=== PATIENT | male | born 1945 | race Caucasian/White ===

== ENCOUNTER 2021-08-07 01:22 | Day surgery (SDC) | payer MEDICARE, SELFPAY ==
[2021-07-29 11:15] VITALS: BMI 28.5
--- NOTE | 2021-08-06 15:13 | PM.HPGS ---
History of Present Illness History of Present Illness Consent: Risks, benefits, and alternatives have been discussed and questions answered. Patient agrees to proceed with procedure. Chief complaint: positive cologuard Narrative: Jl [place]ricks is a 76 year old male who was referred for colon cancer screening. 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 Heart disease Skin cancer Surgical History Surgical History History of coronary artery stent placement Family History Family History Mother Lung cancer Father Diabetes mellitus Parkinson disease Daughter Heart disease Depression Hypertension Social History Social History Smoking packs per day: 1 Smoking cigarettes per day: 20.0 Years smoked: 10 Smoking pack-years: 10.00 Smoking status: Former smoker Tobacco type: cigarettes Second hand tobacco smoke exposure: No Alcohol intake: current Alcohol use details: Rarely Substance use: never Substance use type: does not use Living arrangements: with family Spiritual care concerns: No Meds Home Medications and Allergies Home Medications Medication Instructions Recorded Confirmed Type atorvastatin 80 mg tablet 80 mg PO DAILY #90 tablet 02/06/21 08/07/21 Rx clopidogrel 75 mg tablet 75 mg PO DAILY #90 tablet 02/06/21 08/07/21 Rx dapagliflozin 10 mg tablet 10 mg PO DAILY #90 tablet 05/16/21 08/07/21 Rx dulaglutide 4.5 mg/0.5 mL 4.5 mg SUBCUT WEEKLY #0.5 ml 05/16/21 08/07/21 Rx subcutaneous pen injector flash glucose sensor #1 ea 05/30/21 08/07/21 Rx flash glucose sensor 05/31/21 08/07/21 History metoprolol succinate [Toprol XL] 75 mg PO DAILY 07/29/21 08/07/21 History amlodipine 10 mg tablet 10 mg PO DAILY #90 tablet 08/06/21 08/07/21 Rx metformin 1,000 mg tablet 1,000 mg PO BID 90 Days #180 tablet 08/06/21 08/07/21 Rx quinapril 40 mg tablet 40 mg PO DAILY #90 tablet 08/06/21 08/07/21 Rx Allergies Allergy/AdvReac Type Severity Reaction Status Date / Time No Known Allergies Allergy Verified 08/07/21 09:27 Exam Resp: Auscultation: clear to auscultation bilaterally Cardio: Rate: regular rate Rhythm: regular rhythm GI: GI Palp: Yes Soft to palpation and No Tenderness to palpation present (GI) Assessment and Plan Assessment and plan (1) Encounter for screening colonoscopy: Code(s): Z12.11 - Encounter for screening for malignant neoplasm of colon Status: Acute Assessment and Plan: Colonoscopy with possible biopsy or polypectomy or cautery or injection of substances.
[2021-08-07 09:15] VITALS: BP 121/60; PULSE 95; RESP 18; TEMP 36.7; O2SAT 99; BMI 28.9
[2021-08-07 09:28] LABS: Glucose Point of Care 221 mg/dl (65-105)
[2021-08-07] MEDS: LACTATED RINGERS 1,000 ML 150 ML IV CONT (09:42)
--- NOTE | 2021-08-07 09:56 | WPDANESEPPF ---
Anes - Initial Pre Proc Eval Procedure: Operation Date: 08/07/21 10:30 Proposed Procedures p Colonoscopy - Juan Daniel Grace MD Date/Time: 08/07/21 09:56 Surgeon: Juan Daniel Grace MD Pre Op Diagnosis: positive cologuard Patient Data Age: 76 Gender: M Height: 1.73 m Weight: 86.3 kg Last Vital Signs Temp 98.1 F 08/07/21 09:15 Pulse 95 08/07/21 09:15 Resp 18 08/07/21 09:15 BP 121/60 08/07/21 09:15 Pulse Ox 99 08/07/21 09:15 Allergies Allergy/AdvReac Type Severity Reaction Status Date / Time No Known Allergies Allergy Verified 08/07/21 09:27 Home Medications Medication Instructions Recorded Confirmed Type atorvastatin 80 mg tablet 80 mg PO DAILY #90 tablet 02/06/21 08/07/21 Rx clopidogrel 75 mg tablet 75 mg PO DAILY #90 tablet 02/06/21 08/07/21 Rx dapagliflozin 10 mg tablet 10 mg PO DAILY #90 tablet 05/16/21 08/07/21 Rx dulaglutide 4.5 mg/0.5 mL 4.5 mg SUBCUT WEEKLY #0.5 ml 05/16/21 08/07/21 Rx subcutaneous pen injector flash glucose sensor #1 ea 05/30/21 08/07/21 Rx flash glucose sensor 05/31/21 08/07/21 History metoprolol succinate [Toprol XL] 75 mg PO DAILY 07/29/21 08/07/21 History amlodipine 10 mg tablet 10 mg PO DAILY #90 tablet 08/06/21 08/07/21 Rx metformin 1,000 mg tablet 1,000 mg PO BID 90 Days #180 tablet 08/06/21 08/07/21 Rx quinapril 40 mg tablet 40 mg PO DAILY #90 tablet 08/06/21 08/07/21 Rx Laboratory Tests 08/07/21 09:24 POC Capillary Glucose 221 mg/dl H mg/dl (65-105) Patient hx anesthesia problems: none Family hx anesthesia problems: none Results Review: All pre-operative results and documents have been reviewed as part of the pre-operative evaluation. 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 Heart disease Skin cancer Surgical History Surgical History History of coronary artery stent placement Family History Family History Mother Lung cancer Father Diabetes mellitus Parkinson disease Daughter Heart disease Depression Hypertension Social History Social History Smoking packs per day: 1 Smoking cigarettes per day: 20.0 Years smoked: 10 Smoking pack-years: 10.00 Smoking status: Former smoker Tobacco type: cigarettes Second hand tobacco smoke exposure: No Alcohol intake: current Alcohol use details: Rarely Substance use: never Substance use type: does not use Living arrangements: with family Spiritual care concerns: No Anes - Eval Final PreProcedure Day of Procedure 08/07/21 09:56 Patient weight: overweight Heart: regular rate and rhythm Lungs: clear to auscultation Airway: Mallampati scale class II Neurological: alert and oriented Last oral intake: >/= 8 hours ASA classification: III Emergent: no Anesthetic plan: proceed Anesthesia type and monitoring: general GIVS and standard monitoring Results Review: All pre-operative results and documents have been reviewed as part of the pre-operative evaluation. Informed Consent: The patient's anesthetic plan and its attendant risks and benefits were discussed with the patient/family/POA. Questions were solicited and answers provided to the satisfaction of the patient/family/POA.
[2021-08-07 10:45] VITALS: BP 103/61; PULSE 83; RESP 26; O2SAT 98
[2021-08-07 10:54] VITALS: BP 126/97; PULSE 79; RESP 23; O2SAT 98
[2021-08-07 11:04] VITALS: BP 119/73; PULSE 71; RESP 20; O2SAT 100
== END 2021-08-07 11:05 | disposition home or self-care (01) ==
PROVIDERS: PCP Internal Medicine; Visit Provider Internal Medicine Gastroenterology
PROC: 0DJD8ZZ Inspection of Lower Intestinal Tract, Via Natural or Artificial Opening Endoscopic (ICD-10-PCS; CPT 45378; principal; 2021-08-07 10:30)
DX: Z12.11 Encounter for screening for malignant neoplasm of colon (principal); D12.3 Benign neoplasm of transverse colon; D12.4 Benign neoplasm of descending colon; D12.0 Benign neoplasm of cecum; K63.5 Polyp of colon; R19.5 Other fecal abnormalities; I51.9 Heart disease, unspecified; Z95.5 Presence of coronary angioplasty implant and graft; Z87.891 Personal history of nicotine dependence; Z79.02 Long term (current) use of antithrombotics/antiplatelets; Z79.84 Long term (current) use of oral hypoglycemic drugs; Z79.899 Other long term (current) drug therapy
CPT/HCPCS: 45380; 45385; 82948; 88305; J2704; J7120

== ENCOUNTER 2021-09-24 09:22 | Outpatient (RCR) | payer MEDICARE, SELFPAY ==
[2021-09-24 09:22] VITALS: BMI 32.5
[2021-09-24 09:31] VITALS: BMI 32.5
== END 2021-11-08 14:44 | disposition home or self-care (01) ==
LOC: ANHDMC 09:22
PROVIDERS: PCP Internal Medicine; Visit Provider Internal Medicine
DX: E11.65 Type 2 diabetes mellitus with hyperglycemia (principal); Z71.3 Dietary counseling and surveillance
CPT/HCPCS: 97802

== ENCOUNTER 2023-06-29 10:10 | Outpatient (CLI) | payer MEDICARE, SELFPAY ==
--- NOTE | ~2023-06-29 | US_ITS ---
EXAMINATION: US carotid duplex BI DATE: 06/29/2023 11:15 INDICATION: Left carotid bruit TECHNIQUE: Grayscale, color Doppler, and pulsed Doppler images of the cervical carotid arteries were obtained. The degree of vessel stenosis is placed in one of the following categories: normal, <50%, 5 0-69%, >=70% but less than near-occlusion, near-occlusion, or total occlusion. Note that percent sten osis relative to normal distal artery lumen diameter is indirectly measured from velocity measurement s as described by Carlos, et al. Radiology 2003; 229:340-346. COMPARISON: None. FINDINGS: RIGHT: The right common carotid artery (CCA) peak systolic velocity (PSV) is 79 cm/s. The right internal car otid artery (ICA) PSV is 57 cm/s. The right ICA end-diastolic velocity (EDV) is 19 cm/s. The right IC A/CCA PSV ratio is 0.7. Grayscale and color Doppler images yield an estimate of <50% diameter reducti on from plaque in the ICA. The external carotid artery (ECA) PSV is 87 cm/s. There is antegrade flow in the right vertebral artery. LEFT: The left CCA PSV is 90 cm/s. The left ICA PSV is 58 cm/s. The left ICA EDV is 21 cm/s. The left ICA/C CA PSV ratio is 0.6. Grayscale and color Doppler images yield an estimate of <50% diameter reduction from plaque in the ICA. The ECA PSV is 95 cm/s. There is antegrade flow in the left vertebral artery. IMPRESSION: 1. <50% stenosis in the right internal carotid artery. 2. <50% stenosis in the left internal carotid artery. Reviewed, dictated and finalized at location A.
== END 2023-06-29 10:11 | disposition home or self-care (01) ==
LOC: ANHIMG 10:12
PROVIDERS: PCP Nurse Practitioner; Visit Provider Internal Medicine Cardiovascular Disease
DX: I65.23 Occlusion and stenosis of bilateral carotid arteries (principal); R09.89 Other specified symptoms and signs involving the circulatory and respiratory systems
CPT/HCPCS: 93880

== ENCOUNTER 2025-06-21 02:41 | Day surgery (SDC) | payer MEDICARE, SELFPAY ==
--- OUTSIDE RECORDS SUMMARY | 2010-06-27 12:00 | XMS_ITS | Continuity of Care Document ---
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 Name Role Phone Rodriguez OD, Rodríguez Unavailable Unavailable Procedures Procedure Date Eye Exam & Treatment Refraction Vision Svcs Frames Purchases SV Poly Carb Sph Wal[place] To +/- 4 009 Polycarb Lens Per Lens Eye Exam & Treatment Refraction Eye Exam & Treatment Refraction Eye Exam & Treatment Refraction Advance Directives Directive Yes / No Effective Date File Name No Information Encounters Encounter Description Practice Location Reason(s) For Visit Diagnoses Date Provider Providers Copied on Encounter [facility], [id number] [place] [address] [address], [place], [place], [id number], [place] tel:[phone] [facility] No Information Oct-2 8-201 0 Rodriguez OD Rodríguez. [address] , [address], [place], [address], [place]. tel:[phone] Referring Provider: Davy Vera MD, [address] [facility], [place], [address]. tel:[phone] [facility], [address], [place], [place], [id number], tel:[phone] [facility] No Information Oct-0 9-200 9 [facility] . [address], [address], [place], [place], [id number], [place]. tel:[phone] Referring Provider: Rodríguez Rodriguez OD A, [address], [place], [address]. tel:[phone] g Provider: Jessa Siegel, [address] [facility], [place], [address]. tel:[phone] [facility], [address], [place], [place], [id number], [place] tel:[phone] [facility] No Information Oct-0 1200 9 Rodriguez OD Rodríguez. [address] [facility] , [address], [place], [address], [place]. tel:[phone] Referring Provider: Davy Vera MD, [address] [place], [address]. tel:[phone] [facility], [address], [place], [place], [id number], [place] tel:[phone] [facility] No Information 8 Delmi Lopez. [address] [facility] , [address], [place], [address], [place]. tel:[phone] [facility], [address], [place], [place], [id number], [place] tel:[phone] [facility] No Information 7 Delmi Lopez. [address] [facility] , [address], [place], [address], [place]. tel:[phone] Family History Family Member Type Diagnosis Age At Onset No Information Payers Payer name Insurance type Covered green party ID Authorstevea isha(s) [employer] Plan CI [id number] Social History Type Description Quantity Date Captured Comments Sex Male Smoking Status No Information Chief Complaint And Reason For Visit No Information Reason For Referral Reason For Referral No Information History Of Present Illness Encounter Date Complaint History Of Prese nt Illness No Information Functional Status Date Functional Assessmen t No Information Instructions Date Instruction Additional Infor mation No Information Assessments Type Assessment Date No Information Patient Care Teams Name Effective Dates (start - stop) Status Members No Information
[2025-06-12 15:22] VITALS: BMI 31.4
--- NOTE | 2025-06-12 16:07 | PC.NURSE ---
Spoke with PATIENT regarding medication PLAVIX. PATIENT verbalizes understanding that the last dose is to be taken on 06/13/2025 and the Endoscopist will instruct them when to restart after the procedure.
--- OUTSIDE RECORDS SUMMARY | 2025-06-21 02:44 | XMS_ITS | Encounter Summary ---
Author Organization [facility] Address [address] [place] [address] Care Team Providers Care Chief Technical Officer Name Role Phone Cody Light NP Primary Care Provider Encounter Details Date Type Department Care Team (Late st Contact Info) Description 06/06/2025 Telephone [facility] Medical Group Cardiology [address] [place] [address] Ayush Hurley MD [address] [facility] [address] [facility] [address] [place] [address] Social History Tobacco Use Types Packs/Day Years Used Date Smoking Tobacco: Former Cigarettes 1 - 08/31/1977 Smokeless Tobacco: Never Alcohol Use Standard Drinks/Week Comments No 0 (1 standard drink = 0.6 oz pur e alcohol) Sex and Gender Information Value Date Recorded Sex Assigned at Not on file 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 * Telephone Encounter - Zoraida Wisdom - 06/06/2025 12:19 PM CDT Ayla called in and states that the form she sent over yesterday, is incorrect. She is asking if they can hold Plavix for 7 days and she correct it on her form or if she needs to send over a new formto be completed. Requesting a call back. Please advise, thank you. Contact : [phone] documented in this encounter Plan of Treatment Not on file documented as of this encounter Visit Diagnoses Not on filedocumented in this encounter Care Teams Chief Technical Officer Relationship Specialty Start Date End Date Cody Light, SUSAN [address] [place] [address] PCP - General Nurse Practitioner 12/16/23 documented as of this encounter
--- OUTSIDE RECORDS SUMMARY | 2025-06-21 02:44 | XMS_ITS | Clinical Summary ---
Author Organization [facility] Address [address] [place] [address] Care Team Providers Care Civil Engineering Teacher Name Role Phone Cody Light NP Primary Care Provider Allergies No known active allergies Medications amLODIPine (NORVASC) 10 mg tablet take 1 tablet by oral route every day 30 3 09/04/19 16 Active nitroglycerin (NITROSTAT) 0.[address] 1 tablet (0.4 mg total) under the tongue every 5 (five) minutes as needed for chest pain 25 tablet 3 04/23/20 20 Active atorvastatin (LIPITOR) 80 mg tablet Take 1 tablet (80 mg total) by mouth daily 90 tablet 3 05/25/20 20 Active metFORMIN (GLUCOPHAGE) 1,000 mg tablet Take 1 tablet (1,000 mg total) by mouth 2 (two) times a day 11/17/19 21 Active Farxiga 5 mg tablet Take 1 tablet (5 mg total) by mouth daily 04/13/20 21 Active coenzyme Q10 200 mg capsule Take 2 capsules (400 mg total) by mouth daily Active omega 1-ici-vqr-fis h oil 60-90-500 mg capsule,delay ed release(DR/EC ) Take by mouth Active UNABLE TO FIND Prevagen Active TOUJEO MAX 300 unit/mL (3 mL) pen for injection INJECT 30 UNITS SUBCUTANEOUSLY DAILY 03/12/20 22 Active Ozempic 1 mg/dose (4 mg/3 mL) pen injector injection INJECT 1 MG UNDER SKIN ONCE WEEKLY 11/14/19 23 Active lisinopriL (PRINIVIL,ZES TRIL) 40 mg tablet Take 1 tablet (40 mg total) by mouth daily 03/26/20 23 Active metoprolol XL (TOPROL-XL) 50 mg extended release tablet TAKE 1.5 TABLETS BY MOUTH DAILY 135 tablet 2 03/29/20 25 Active clopidogreL (PLAVIX) 75 mg tablet TAKE 1 TABLET BY MOUTH EVERY DAY 90 tablet 06/05/20 25 Active clopidogreL (PLAVIX) 75 mg tablet TAKE 1 TABLET BY MOUTH EVERY DAY 90 tablet 03/08/20 25 2024 Discontinued Active Problems Problem Noted Date Diagnosed Date Obesity (BMI 30.0-34.9) 12/18/2023 Left carotid bruit 06/12/2023 Hyperlipidemia associated with type 2 diabetes m ellitus 06/17/2022 Coronary artery disease of n ative artery of [place] heart with stable angina pectoris ([facility]) 04/23/2017 Assessment & Plan (04/29/2021 10:24 AM CDT): No symptoms of myocardial ischemia. Continue clopidogrel. He has nitroglycerin available and we reviewed today how he should take it if needed.( He has never needed it.) Assessment & Plan (04/23/2020 10:10 AM CDT): No symptoms of myocardial ischemia. Continue Plavix and metoprolol. Assessment & Plan (04/21/2019 10:53 AM CDT): Asymptomatic and with normal myocardial perfusion study. Continue clopidogrel. Assessment & Plan (04/22/2018 2:17 PM CDT): No symptoms of myocardial ischemia. Continue anti-platelet therapy. Pharmacologic stress test with next visit. Assessment & Plan (04/23/2017 12:44 PM CDT): Asymptomatic. Continue anti-platelet therapy. Hypertension associated with diabetes 04/23/2017 Assessment & Plan (04/29/2021 10:24 AM CDT): Blood pressure is adequately controlled on current regimen. No change was made. Assessment & Plan (04/23/2020 10:10 AM CDT): Blood pressure is adequately controlled on current regimen. No change was made. Assessment & Plan (04/21/2019 10:53 AM CDT): Blood pressure is adequately controlled on current regimen. No change was made. Assessment & Plan (04/22/2018 2:17 PM CDT): Blood pressure is adequately controlled on current regimen. No change was made. Assessment & Plan (04/23/2017 12:44 PM CDT): Blood pressure is adequately controlled on current regimen. No change was made. Encounters Date Type Department Care Team Description 06/06/2025 Telephone [facility] Medical Group Cardiology [address] [place] [address] Ayush Hurley MD from Last 3 Months Surgical History Surgery Date Site/Laterality Comments CATARACT EXTRACTION 2019 both eyes Medical History Medical History Date Comments Hypertension Hypertension Hyperlipidemia Diabetes mellitus Arthritis Cataract Start of cataracts Heart disease Family History Medical History Relation Name Comments Coronary artery disease Father Keenan [place] Cor onary Artery Bypass Graft; Diabetes Father Keenan [place] Hearing loss Father Keenan [place] Heart attack Father Keenan [place] Heart disease Father Keenan [place] Stroke Father Keenan [place] Cancer Mother Lakshmi [place] Relation Name Status Comments Brother Alive Father Keenan [place] Mother Lakshmi [place] Sister Alive Social History Tobacco Use Types Packs/Day Years Used Date Smoking Tobacco: Former Cigarettes 1 - 08/31/1977 Smokeless Tobacco: Never Tobacco Cessation:Counseling Given: Not Answered Alcohol Use Standard Drinks/Week Comments No 0 (1 standard drink = 0.6 oz pur e alcohol) Sex and Gender Information Value Date Recorded Sex Assigned at Not on file 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 Gender Identity Male 04/18/2020 6:08 PM CDT Sexual Orientation Straight 04/18/2020 6: 08 PM CDT Obstetrics History Last Filed Vital Signs Vital Sign Reading Time Taken Comments Blood Pressure 136/68 02/24/2025 8:06 AM CDT Pulse 65 02/24/2025 8:06 AM CDT Temperature - - Respiratory Rate - - Oxygen Saturation 95% 02/24/2025 8:06 AM CDT Inhaled Oxygen Concentration - - Weight 90.7 kg (200 lb) 02/24/2025 8:06 AM CDT Height 170.2 cm (5' 7) 02/24/2025 8:06 AM CDT Body Mass Index 31.32 02/24/2025 8:06 AM CDT Plan of Treatment Health Maintenance Due Date Last Done Comments Albumin Creatinine Ratio, Urine 1947 Depression Screening 1947 Fall Risk Assessment 1947 Hemoglobin A1C 1947 Hepatitis C Screening 1947 eGFR 1947 Dilated Eye Exam 1947 Foot Exam 1947 DTaP/Tdap/Td Vaccine (1 - Tdap) 1958 Hepatitis B Screening 1965 Pneumococcal vaccine 65+ (1 of 2 - PCV) 1966 Zoster Vaccine (1 of 2) 1997 Abdominal Aortic Aneurysm (A AA) Screen 2012 Well Visit 65+ 2012 Covid-19 Vaccine (3 - 2024-2 6 season) 2025 11/13/2020, 10/23/2020 Influenza Vaccine (#1) 2025 Lipid Panel 02/24/2026 02/24/2025, 04/02, 06/12/2023, Additional history exists Procedures Procedure Name Priority Date/Time Associated Diagnosis Comments POCT LIPID PANEL Routine 02/24/2025 8:01 AM CDT Coronary artery disease involving [place] coronary artery of [place] heart without angina pectoris from Last 3 Months or Most Recently Relevant to Health Maintenance Results * (ABNORMAL) POCT lipid panel (02/24/2025 8:01 AM CDT) Cholesterol, POC 120 <200 MG/DL HDL, POC 31(A) >=40 mg/dL Triglycerides, POC 106 <=149 mg/dL LDL Cholesterol POC 68 <=129 mg/dL Chol/HDL Ratio, POC 2.2 NONE Non-HDL Cholesterol, POC 89 NONE mg/dL Cholesterol Total, POC 120 30 - 199 mg/dL Capillary blood 02/24/2025 8 :01 AM CDT Lauren Farah NP POINT OF CARE TEST ORDERA BLES Final Result from Last 3 Months or Most Recently Relevant to Health Maintenance Insurance A[employer]NA MEDICARE AETNA MEDICARE Care Teams Civil Engineering Teacher Relationship Specialty Start Date End Date Cody Light NP [address] [place] [address] PCP - General Nurse Practitioner 12/16/23
--- OUTSIDE RECORDS SUMMARY | 2025-06-21 02:44 | XMS_ITS | Data Portability ---
Author Organization [place] [facility] [employer], Main Office Address [address] [place] [address] Assessment Encounter Date Assessment Date Assessment LastModified by Organization Details LastModified Time 01/18/2025 01/18/2025 This note is dictated and transcribed by [employer]. Wet Room Supervisor variances may occur. Despite proofreading, typographical errors may occur. Occasional wrong-word or 'lwhsr-b-suac' substitutions may have occurred due to the inherent limitations of voice recording. Read the chart carefully and recognize, using context, where substitutions have occurred. Not available 01/18/2025 10:37:33 01/25/2025 01/25/2025 This note is dictated and transcribed by [employer]. Wet Room Supervisor variances may occur. Despite proofreading, typographical errors may occur. Occasional wrong-word or 'jjdip-l-fdlo' substitutions may have occurred due to the inherent limitations of voice recording. Read the chart carefully and recognize, using context, where substitutions have occurred. Not available 01/25/2025 10:25:22 02/01/2025 02/01/2025 This note is dictated and transcribed by [employer]. Wet Room Supervisor variances may occur. Despite proofreading, typographical errors may occur. Occasional wrong-word or 'ybixc-o-jxak' substitutions may have occurred due to the inherent limitations of voice recording. Read the chart carefully and recognize, using context, where substitutions have occurred. Not available 02/01/2025 10:44:44 02/15/2025 02/15/2025 This note is dictated and transcribed by [employer]. Wet Room Supervisor variances may occur. Despite proofreading, typographical errors may occur. Occasional wrong-word or 'xxdwx-b-ijsh' substitutions may have occurred due to the inherent limitations of voice recording. Read the chart carefully and recognize, using context, where substitutions have occurred. [email or web address] Not available 02/15/2025 10:32:59 04/17/2025 04/17/2025 This note is dictated and transcribed by [employer]. Wet Room Supervisor variances may occur. Despite proofreading, typographical errors may occur. Occasional wrong-word or 'sgqux-r-ddyp' substitutions may have occurred due to the inherent limitations of voice recording. Read the chart carefully and recognize, using context, where substitutions have occurred. [email or web address] Not available 04/24/2025 10:41:24 Plan of Treatment Reminders Order Date Submit Date Provider Last Modified By Organization Details Last Modified Time Details Appointments Establish ed Patient 15 2024 10:00A M Ray Coy DPM Not available Not available Not available Lab None recorded. Referral None recorded. Procedures None recorded. Surgeries None recorded. Imaging None recorded. Medication Orders None recorded. Patient TargetsNo targets recorded. Patient InstructionsNo instructions recorded. Reason for Referral None Reported. Problems Name Problem SNOMED Code Status Onset Date Resolution Date Notes Provider Name and Address Organization Details Recorded Time Ulcer of right foot due to type 2 diabetes mellitus 5357628152519 9102 Active 2024 Ray Coy DPM [address], [place], [address], [employer] [facility] 5 15:57:50 Diabetic peripheral neuropathy 124337773 Active 2024 Ray Coy DPM [address], [place], [address], [employer] 5 15:57:56 Diabetic foot ulcer 144851919 Active 2024 Ray Coy DPM [address], [place], [address], [employer] [facility] 5 14:20:22 Neuropathy due to type 2 diabetes mellitus 9737056638092 06 Active 2024 Ray Coy DPM [address], [place], [address], [employer] 10:42:22 History of amputation of foot 072669116 Active 2024 Ray Coy DPM [address], [place], [address], [employer] 10:42:49 Problem Notes None recorded. Procedures Surgical History Date Name Laterality Status Provider Name and Address Organization Details Recorded Time 5 Wound Care-Podiatry completed Ray Coy DPM [address], [place], [address], [employer] 02/15/2025 10:32:23 5 Wound Care-Podiatry completed Ray Coy DPM [address], [place], [address], [employer] 02/01/2025 10:44:20 5 Wound Care-Podiatry completed Gavi Hannon RN [facility] 01/25/2025 10:30:38 5 Wound Care-Podiatry completed Ray Coy DPM [address], [place], [address], [employer] 01/18/2025 10:28:18 5 Wound Care-Podiatry completed Ray Coy DPM [address], [place], [address], [employer] 01/11/2025 10:25:26 5 Wound Care-Podiatry completed Ray Coy DPM [address], [place], [address], [employer] 01/04/2025 11:19:37 5 Wound Care-Podiatry completed Ray Coy DPM [address], [place], [address], [employer] 12/28/2024 10:41:45 5 Wound Care-Podiatry completed Ray Coy DPM [address], [place], [address], [facility] [employer] [facility] 12/21/2024 10:45:53 5 Wound Care-Podiatry completed Ray Coy DPM [address], [place], [address], [facility] [employer] [facility] 12/14/2024 14:20:01 5 Wound Care-Podiatry completed Gavi Hannon RN [facility] [employer] [facility] 12/01/2024 16:07:38 5 removal of mole of skin by excision completed Marlen [employer] [facility] [employer] [facility] 12/01/2024 16:00:43 5 Eye completed [employer] [facility] [employer] [facility] 12/01/2024 16:00:26 5 Cardiac Stent Placement completed [employer] [facility] [employer] [facility] 12/01/2024 16:01:24 Imaging Results None recorded. Procedure Notes None recorded. Medical Equipment None Reported. Allergies No known drug allergies Medications Name Sig Start Date Stop Date Status Note LastModified by Organization Details LastModified Time atorvastati n 80 mg tablet TAKE 1 TABLET BY MOUTH EVERY DAY active Not Available Not Available No t Available metoprolol succinate ER 50 mg tablet,exte nded release 24 hr TAKE 1.5 TABLETS BY MOUTH DAILY active Not Available Not Available No t Available hydrocodone 5 mg-acetamin ophen 325 mg tablet TAKE 1 TABLET BY MOUTH EVERY 6 HOURS NEEDED FOR SEVERE PAIN 02/01 completed Not Available Not Available Not Available clopidogrel 75 mg tablet TAKE 1 TABLET BY MOUTH EVERY DAY active Not Available Not Available No t Available sulfamethox azole 800 mg-trimetho prim 160 mg tablet TAKE 1 TABLET BY MOUTH TWICE A DAY active Not Available Not Available No t Available amlodipine 10 mg tablet TAKE 1 TABLET BY MOUTH EVERY DAY active Not Available Not Available No t Available metformin 1,000 mg tablet TAKE 1 TABLET BY MOUTH TWICE A DAY active Not Available Not Available No t Available lisinopril 40 mg tablet TAKE 1 TABLET BY MOUTH EVERY DAY active Not Available Not Available No t Available doxycycline hyclate 100 mg tablet TAKE 1 TABLET BY MOUTH 2 TIMES A DAY FOR 10 DAYS 02/01 completed Not Available Not Available Not Available amoxicillin 875 mg-potassiu m clavulanate 125 mg tablet TAKE 1 TABLET BY MOUTH EVERY 12 HOURS FOR 10 DAYS 02/01 completed Not Available Not Available Not Available BD Ultra-Fine Mini Pen Needle 31 gauge x 3/16 USE ONCE DAILY DIRECTED active Not Available Not Available No t Available Farxiga 10 mg tablet 10 MG ORALLY DAILY active Not Available Not Available No t Available Toujeo Max U-300 SoloStar 300 unit/mL (3 mL) subcutaneou s insulin pen INJECT 34 UNIT (0.1133 ML) SUBCUTANE OUSLY DAILY active Not Available Not Available No t Available Ozempic 1 mg/dose (4 mg/3 mL) subcutaneou s pen injector INJECT 1 MG SUBCUTANE OUSLY ONCE WEEKLY active Not Available Not Available No t Available Lagevrio 200 mg capsule (EUA) TAKE 4 CAPSULES BY MOUTH EVERY 12 HOURS FOR 5 DAYS active Not Available Not Available No t Available Vitals Date Recorded Body height Body mass index (BMI) Body weight Heart rate Respiratory rate Body temperature Oxygen saturation Oxygen saturation in Arterial blood by Pulse oximetry Systolic And Diastolic Provider Name and Address Organization Details Last Updated DateTime 5 170.18 cm 29.4 kg/m2 60390.3 7 g 75 /min 16 /min 98.6 [degF] 98 % 98 % 109/61 mm[Hg] Marlen [facility] [employer] [facility] 5 09:55:21 Date Recorded Body height Heart rate Respiratory rate Body temperature Oxygen saturation Oxygen saturation in Arterial blood by Pulse oximetry Body mass index (BMI) Body weight Systolic And Diastolic Provider Name and Address Organization Details Last Updated DateTime 5 170.18 cm 75 /min 17 /min 98.6 [degF] 98 % 98 % 29.4 kg/m2 13529.3 7 g 119/58 mm[Hg] Marlen [facility] [employer] [facility] 5 10:04:45 Date Recorded Body height Heart rate Respiratory rate Body temperature Oxygen saturation Oxygen saturation in Arterial blood by Pulse oximetry Systolic And Diastolic Provider Name and Address Organization Details Last Updated DateTime 5 170.18 cm 74 /min 16 /min 98 [degF] 97 % 97 % 114/62 mm[Hg] Marlen Mccall [facility] [employer] [facility] 5 10:06:19 Date Recorded Body height Heart rate Respiratory rate Body temperature Oxygen saturation Oxygen saturation in Arterial blood by Pulse oximetry Systolic And Diastolic Provider Name and Address Organization Details Last Updated DateTime 5 170.18 cm 74 /min 16 /min 97.6 [degF] 98 % 98 % 126/62 mm[Hg] Marlen Mccall [facility] [employer] [facility] 5 10:06:02 Date Recorded Heart rate Body temperature Oxygen saturation Oxygen saturation in Arterial blood by Pulse oximetry Systolic And Diastolic Provider Name and Address Organization Details Last Updated DateTime 5 81 /min 97.7 [degF] 98 % 98 % 128/63 mm[Hg] MAGDALENA Dickson [facility] [employer] [facility] 5 12:46:39 Date Recorded Body height Body mass index (BMI) Body weight Provider Name and Address Organization Details Last Updated DateTime 04/17/2025 170.18 cm 29.4 kg/m2 80528.37 g Christine Owen [facility] [employer] [facility] 04/17/2025 12:42:33 Social History Question Answer Notes LastModified by Organizat ion Details LastModified Time Tobacco Smoking Status Former Smoker Marlen Mccall [facility] [employer] [facility] 12/01/2024 16:27:14 Where Do You Live? [place] Information not available 12/01/2024 Do You Use Your Seat Belt Or Car Seat Routinely? Yes Information not available 12/01/2024 Do You Have Smoke And Carbon Monoxide Detectors In Your Home? Yes Information not available 12/01/2024 Are You Passively Exposed To Smoke? No Information not available 12/01/2024 Has Tobacco Cessation Counseling Been Provided? Yes Information not available 12/01/2024 How Many Years Have You Smoked Tobacco? 10 Information not available 12/01/2024 Sex: Male Functional Status Question Answer Note LastModified by Organization D etails LastModified Time What is your level of alcohol consumption? None Information not available 12/01/2024 Mental Status None recorded. Family History Relationship Description Onset Age of this Age Resolved Age Notes LastModified by Organization Details LastModified Time Father Diabetes mellitus Not available 12/01 16:02:44 Father Family history of stroke [email or web address] Not available 2024 09:51:28 Father Heart disease Not available 12/01 16:03:43 Mother Malignant neoplasm of lung [email or web address] Not available 2024 09:51:28 Medical History No medical history recorded. Past Encounters Encounter ID Performer Location Encounter Start Date Encounter Closed Date Diagnosis/Indication Diagnosis SNOMED-CT Code Diagnosis ICD10 Code Diagnosis IMO Codes Diagnosis Note [id number] [facility] [address] [place] [address] 12/01/2024 15:05:26 12/01/2024 16:58:49 Ulcer of right foot due to type 2 diabetes mellitus 8852148457 6081487 E11.621 plantar sub first met headBetadi ne wet-to-dry dressing- dailyrecom mend admission through emergency room Diabetic p eripheral neuropathy 164498879 E11.40 will need diabetic shoes and insoles Gas gangrene of foot 186 698030 A48.0 right great toex-rays reviewed early gas formation over the proximal phalanxpat ient taken to the emergency room department after visit Cellulitis of right foot 6398995345 8797045 L03.115 recommend ER admission today [id number] [facility] [address] [place] [address] 12/14/2024 09:40:38 12/14/2024 14:08:47 Postoperative visit 301312936 Z48.89 postop-- right foot 1st ray amputation with delayed wound closurepat hology reviewed 1st met head negative for osteomyeli tispostope rative x-rays reviewedda isa dressings with Betadine wet-to-dry Follow-up 1 week Diabetic foot ulcer 3710 48704 E13.621 right foot plantar sub 1st met head- eschar to wound bedshould you offloading Continue postop shoeContin ue Betadine wet-to-dry dailyfollo w-up one-week Dehiscence of surgical wound 19482022 T81.30XA as above [id number] Ray Coy DPM [facility] [address] [place] [address] 12/21/2024 09:47:15 12/21/2024 11:57:27 Postoperative visit 727624387 Z48.89 postop-- right foot 1st ray amputation with delayed wound closuresut ures removedpat hology reviewed 1st met head negative for osteomyeli tis Dehiscence of surgical wound 47887057 T81.30XA wound debrided todaysutur es removed- Steri-Stri ps applied post debridemen t to coapt skin edgesconti nue Betadine wet-to-dry dressings Diabetic foot ulcer 3710 60847 E13.621 right foot plantar sub 1st met head- callusshou ld you offloading Continue postop shoeContin ue Betadine wet-to-dry dailyfollo w-up one-week [id number] Ray Coy DPM [facility] [address] [place] [address] 12/28/2024 09:53:21 12/28/2024 13:45:20 Postoperative visit 456848699 Z48.89 postop-- right foot 1st ray amputation with delayed wound closuresut ures removedpat hology reviewed 1st met head negative for osteomyeli tis Dehiscence of surgical wound 29937373 T81.30XA wound debrided todayconti nue Betadine wet-to-dry dressings with iodoform packingord er wound VAC- increase granulatio n and wound healingfol low-up 1 week Diabetic foot ulcer 3710 21665 E13.621 right foot plantar sub 1st met head- callusWoun d debridedsh ould you offloading Continue postop shoeContin ue Betadine wet-to-dry dailyfollo w-up one-week [id number] Ray Coy DPM [facility] [address] [place] [address] 01/04/2025 09:56:12 01/04/2025 13:58:18 Postoperative visit 055160606 Z48.89 postop-- right foot 1st ray amputation with delayed wound closurepat hology reviewed 1st met head negative for osteomyeli tis Dehiscence of surgical wound 40800633 T81.30XA wound debrided todayconti nue Betadine wet-to-dry dressings with iodoform packingord er wound VAC- increase granulatio n and wound healingfol low-up 1 week Diabetic foot ulcer 3710 24544 E13.621 right foot plantar sub 1st met head- callusat all times- offloading Continue postop shoeContin ue Betadine wet-to-dry dailyfollo w-up one-week [id number] Ray Coy DPM [facility] [address] [place] [address] 01/11/2025 09:51:51 01/11/2025 13:40:02 Postoperative visit 921558477 Z48.89 postop-- right foot 1st ray amputation with delayed wound closurepat hology reviewed 1st met head negative for osteomyeli tis Dehiscence of surgical wound 00373604 T81.30XA Endoform applied today with wound VAC dressingif wound VAC dressing fails remove and apply Betadine wet-to-dry dressingco ntinue offloading at all timesfollo w-up 1 week, wound care Diabetic foot ulcer 3710 23534 E13.621 right foot plantar sub 1st met head- pinholeat all times- offloading Continue postop shoeContin ue Betadine wet-to-dry dailyfollo w-up one-week [id number] Ray Coy DPM [facility] [address] [place] [address] 01/18/2025 09:50:26 01/18/2025 12:43:01 Postoperative visit 162250207 Z48.89 postop-- right foot 1st ray amputation with delayed wound closurepat hology reviewed 1st met head negative for osteomyeli tis Dehiscence of surgical wound 86149439 T81.30XA Endoform applied today with wound VAC dressingif wound VAC dressing fails remove and apply Betadine wet-to-dry dressingco ntinue offloading at all timesfollo w-up 1 week, wound care Diabetic foot ulcer 3710 77624 E13.621 right foot plantar sub 1st met head- healed [id number] [facility] [address] [place] [address] 01/25/2025 09:56:31 01/25/2025 10:58:47 Postoperative visit 230617189 Z48.89 postop-- right foot 1st ray amputation with delayed wound closurepat hology reviewed 1st met head negative for osteomyeli tis Dehiscence of surgical wound 53199583 T81.30XA Endoform applied today with wet-to-dry dressingDC wound VACcontinu e offloading at all times- postop shoefollow -up 1 week, wound care History of diabetic foot ulcer 6171887427 3349922 Z86.31 87730947 plantar right sub 1st metatarsal head, healed [id number] [facility] [address] [place] [address] 02/01/2025 09:56:00 02/01/2025 11:17:40 Postoperative visit 609725751 Z48.89 postop-- right foot 1st ray amputation with delayed wound closurepat hology reviewed 1st met head negative for osteomyeli tis Dehiscence of surgical wound 88256734 T81.30XA gentian gladys applied today with wet-to-dry dressingDC wound VACcontinu e offloading at all times- postop shoefollow -up 2 week, wound care History of diabetic foot ulcer 3548231070 8442714 Z86.31 37437113 plantar right sub 1st metatarsal head, healed [id number] [facility] [address] [place] [address] 02/15/2025 09:56:01 02/15/2025 11:51:32 Dehiscence of surgical wound 49520934 T81.30XA healedfoll ow up 2 months for DM Diabetic p eripheral neuropathy 626700230 E11.40 Rx diabetic shoes and insolesmay transition to normal shoe gear until he gets diabetic shoes and insoles History of diabetic foot ulcer 6695959141 7955836 Z86.31 40026833 plantar right sub 1st metatarsal head, healed History of amputation of foot 940935341 Z89.429 9584498148 right great toe [id number] Ray Coy DPM [facility] Natalie Huston [address] [place] [address] 04/17/2025 12:40:37 04/25/2025 14:18:14 Diabetic peripheral neuropathy 238810627 E11.40 as above History of amputation of foot 140843451 Z89.429 3882991318 right great toe- secondary to diabetic foot ulcer and osteomyeli tis Neuropathy due to type 2 diabetes mellitus 3190672755 73281 E11.40 58368808 continue diabetic shoes with custom [place] ck feet daily for wounds infectionF ollow-up in 3 months for diabetic foot care Health Concerns Section Related Observation LastModified by Organization Detai ls LastModified Time None Recorded Concern Status LastModified by Organization Details LastModified Time None Recorded Advance Directives Directive None Recorded Payers Insurance Date Sequence Insurance Name Policy Number Policy Fernandez Covered Member ID Fernandez Member ID Guarantor Name 04/25/2025 1 [employer] (MEDICARE REPLACEMENT /ADVANTAGE - PPO) [id number] Jl Hendricks [id number] Jl Hendricks Notes Date Note Type Note Provider Name and Address Organization Details Recorded Time 01/18/2025 text/html ROS as noted in the HPI . Patient is a 79-year-old male diabetic who returns for follow-up on wound dehiscence secondary to amputation and plantar wound to the sub 1st metatarsal head. Patient is doing very well he continues wound VAC therapy he is almost healed with a healthy wound bed. Patient denies any fever, chills, nausea, vomiting, chest pain, trouble breathing. Ray Coy DPM [address], [address], [facility] [employer] [facility] 01/18/2025 10:50:36 01/25/2025 text/html ROS as noted in the HPI . Patient is a 79-year-old male who returns for follow-up on wound dehiscence secondary to amputation of the great toe he continues to do well with wound VAC he is almost healed he is a very healthy wound bed he has no acute signs of infection. Patient denies any other complaints. Ray Coy DPM [address], [place], [address], [employer] 01/25/2025 10:45:08 02/01/2025 text/html ROS as noted in the HPI . Patient is a 79-year-old male diabetic who returns for follow-up on wound dehiscence secondary toe amputation which is about 90 95% healed. Patient has only a small area left heel he is doing sexually well he denies any new complaints. Patient denies any fever, chills, nausea or vomiting. Ray Coy DPM [address], [place], [address], [employer] 02/01/2025 10:45:13 02/15/2025 text/html ROS as noted in the HPI . Patient is a 79-year-old male diabetic who returns for follow-up on wound dehiscence secondary to toe amputation. Patient is completely healed he denies any new complaints. Patient denies any new wounds or foot pain. Patient was educated on diabetic shoes and insoles and we will start this today. Ray Coy DPM [address], [place], [address], [employer] 02/15/2025 10:34:35 04/17/2025 text/html . 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 Patient overall is doing very well he has remained healed he denies any new wounds he has diabetic custom insoles and shoe gear and he is doing well. Patient denies any other complaints. Ray Coy DPM [address], [place], [address], [employer] 04/24/2025 10:43:03
--- OUTSIDE RECORDS SUMMARY | 2025-06-21 02:45 | XMS_ITS | Encounter Summary ---
Author Organization [facility] Address 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 Gender Identity Not on file Sexual Orientation Not on file documented as of this encounter Plan of Treatment Not on file documented as of this encounter Procedures Procedure Name Priority Date/Time Associated Diagnosis Comments PT AND APTT Routine 03/09/2007 7:49 AM CDT CBC WITH DIFFERENTIAL Routine 03/09/2007 7:49 AM CDT CBC WITH DIFFERENTIAL Routine 03/09/2007 7:49 AM CDT MAGNESIUM LEVEL Routine 03/09/2007 7:49 AM CDT BASIC METABOLIC PANEL Routine 03/09/2007 7:49 AM CDT documented in this encounter Results * CBC WITH DIFFERENTIAL (03/09/2007 7:49 AM CDT) NEUTROPHILS 68 45 - 70 % INTERFAC E SYSTEM LYMPHOCYTES 24 16 - 45 % INTERFAC E SYSTEM MONOCYTES 6 3 - 13 % INTERFACE SYSTEM EOSINOPHILS 3 0 - 7 % INTERFAC E SYSTEM BASOPHILS 0 0 - 2 % INTERFACE SYSTEM NEUTROPHIL ABSOLUTE 4.38 1.90 - 7.00 K/uL INTERFACE SYSTEM LYMPHOCYTE ABSOLUTE 1.55 0.70 - 4.50 K/uL INTERFACE SYSTEM MONOCYTE ABSOLUTE 0.38 0.10 - 1.30 K/uL INTERFACE SYSTEM EOSINOPHIL ABSOLUTE 0.16 0.00 - 0.70 K/uL INTERFACE SYSTEM BASOPHILS ABSOLUTE 0.01 0.00 - 0.20 K/uL INTERFACE SYSTEM 03/09/2007 7:49 AM CDT Idalia Roque MD HEMATOLOGY ORDERABLES Edited Performing Organization Address [facility] Phone Number INTERFACE SYSTEM Refer to clinic/hospital department * (ABNORMAL) CBC WITH DIFFERENTIAL (03/09/2007 7:49 AM CDT) WBC 6.5 4.0 - 9.8 K/uL INTERFACE SYSTEM RBC 5.61(H) 4.50 - 5.40 M/uL INTERFACE SYSTEM HEMOGLOBIN 16.3 13.6 - 16.5 g/dL INTERFACE SYSTEM HEMATOCRIT 45.1 40.0 - 48.0 % INTERFACE SYSTEM MCV 80.4(L) 82.0 - 99.0 fL INTERFACE SYSTEM MCH 29.1 27.2 - 32.6 pg INTERFACE SYSTEM MCHC 36.1(H) 31.5 - 35.5 % INTERFACE SYSTEM RDW 13.3 11.5 - 14.5 % INTERFACE SYSTEM RDW-STDEV 38.4 37.1 - 48.7 fL INTERFACE SYSTEM PLATELETS 229 140 - 350 K/uL INTERFACE SYSTEM MPV 10.8 9.3 - 12.4 fL INTERFACE SYSTEM 03/09/2007 7:49 AM CDT Idalia Roque MD HEMATOLOGY ORDERABLES Edited Performing Organization Address [facility] Phone Number INTERFACE SYSTEM Refer to clinic/hospital department * MAGNESIUM LEVEL (03/09/2007 7:49 AM CDT) MAGNESIUM 2.0 1.5 - 2.5 mg/dL INTERFACE SYSTEM 03/09/2007 7:49 AM CDT Result [facility] Idalia Roque MD CHEMISTRY ORDERABLES Edited Performing Organization Address [facility] Phone Number INTERFACE SYSTEM Refer to clinic/hospital department * PT AND APTT (03/09/2007 7:49 AM CDT) PROTIME 13.2 12.7 - 15.1 Seconds INTERFACE SYSTEM INR 1.0 0.9 - 1.1 INTERFACE SYSTEM Comment: INR Therapeutic Range: Adult: 2.0 - 3.0 for pulmonary embolism or prophylaxis against venous thrombosis or systemic embolization. 2.0 - 3.0 for patients with tissue heart valves. 2.5 - 3.5 for patients with mechanical heart valves or post FL. Pediatric (12 years and under): 1.5 - 3.0 Although the target range in children is not well established , INR values of 1.5 - 3.0 are recommended for most patients. Higher values have been used in children with prosthetic cardiac valves and hereditary clotting disorders. (<3 days) therapeutic ranges have not been established. PTT 26.5 24.4 - 36.4 Seconds INTERFACE SYSTEM Comment: PTT Therapeutic Range: Heparin Level PTT (seconds) <0.10 units/mL <53 0.10 - 0.30 units/mL 53 - 67 0.30 - 0.70 units/mL* 67 - 95* 0.70 - 1.00 units/mL 95 - 116 *corresponds to therapeutic range for unfractionated heparin 03/09/2007 7:49 AM CDT Result [facility] Idalia Roque MD HEMATOLOGY ORDERABLES Edited Performing Organization Address [facility] Co de Phone Number INTERFACE SYSTEM Refer to clinic/hospital department * (ABNORMAL) BASIC METABOLIC PANEL (03/09/2007 7:49 AM CDT) GLUCOSE 213(H) 65 - 99 mg/dL INTERFACE SYSTEM CREATININE 0.74 0.67 - 1.17 mg/dL INTERFACE SYSTEM CALCIUM 8.9 8.4 - 10.2 mg/dL INTERFACE SYSTEM BUN 9 6 - 20 mg/dL INTERFACE SYSTEM SODIUM 137 135 - 145 mmol/L INTERFACE SYSTEM POTASSIUM 4.6 3.5 - 4.9 mmol/L INTERFACE SYSTEM CHLORIDE 100 96 - 108 mmol/L INTERFACE SYSTEM CO2 28 22 - 30 mmol/L INTERFACE SYSTEM GFR, >60 >=60 mL/min/1. 7 sq meter INTERFACE SYSTEM GFR >60 >=60 mL/min/1. 7 sq meter INTERFACE SYSTEM Comment: Estimated GFR rate interpretative information for both Americans and non- Americans is available on the [facility] Intranet at: [email or web address] Select: Lab Policies and Procedures Select: Reference Ranges - GFR 03/09/2007 7:49 AM CDT Idalia Roque MD CHEMISTRY ORDERABLES Edited INTERFACE SYSTEM Refer to clinic/hospital department documented in this encounter Visit Diagnoses Diagnosis Paroxysmal supraventricular tachycardia- Primary documented in this encounter Care Teams Healthcare Liaison Relationship Specialty Start Date End Date Dayv Vera MD [address] [place] [address] PCP - General 03/09/07 documented as of this encounter
--- OUTSIDE RECORDS SUMMARY | 2025-06-21 02:45 | XMS_ITS | Clinical Summary ---
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
[2025-06-21 09:18] VITALS: BP 133/59; PULSE 75; RESP 18; TEMP 36.5; O2SAT 100; BMI 31.7
[2025-06-21] MEDS: LACTATED RINGERS 1,000 ML 150 ML IV CONT (09:43)
--- NOTE | 2025-06-21 09:56 | WPDANESEPPF ---
Anes - Initial Pre Proc Eval Procedure: Operation Date: 06/21/25 10:30 Proposed Procedures p Screening Colonoscopy - Rojas Mayo MD Date/Time: 06/21/25 09:56 Surgeon: Rojas Mayo MD Pre Op Diagnosis: Screening,Personal history of colon polyps Patient Data Age: 79 Gender: M Height: 1.7 m Weight: 92 kg Last Vital Signs Temp 36.5 C 06/21/25 09:18 Pulse 75 06/21/25 09:18 Resp 18 06/21/25 09:18 BP 133/59 L 06/21/25 09:18 Pulse Ox 100 06/21/25 09:18 O2 Del Method Room Air 06/21/25 09:18 Allergies Allergy/AdvReac Type Severity Reaction Status Date / Time No Known Allergies Allergy Verified 06/21/25 09:29 Home Medications ?Medication ?Instructions ?Recorded ?Confirmed ?Type clopidogrel 75 mg tablet 75 mg PO DAILY #90 tabs 02/06/21 06/21/25 Rx flash glucose scanning reader #1 ea 03/21/22 12/20/24 Rx (FreeStyle Millie 2 [place]) flash glucose sensor (FreeStyle #1 ea 03/21/22 12/20/24 Rx Millie 2 Sensor kit) metoprolol succinate 50 mg 75 mg (1.5 x 50 mg) PO DAILY #90 05/22/22 06/21/25 Rx tablet,extended release 24 hr tabs (Toprol XL) pen needle, diabetic, safety 31 #100 ea 10/03/22 12/20/24 Rx gauge x 1/4 insulin glargine U-300 conc 300 See Rx Instructions .Route 12/26/24 06/21/25 Rx unit/mL (3 mL) subcutaneous pen .COMPLEX #3 mL (Toujeo Max U-300 SoloStar) semaglutide 1 mg/dose (4 mg/3 mL) 1 mg (0.75 mL) subcut WEEKLY #9 mL 03/20/25 06/21/25 Rx subcutaneous pen injector (Ozempic) dapagliflozin propanediol 10 mg See Rx Instructions .Route 04/10/25 06/21/25 Rx tablet (Farxiga) .COMPLEX #90 tabs lisinopril 40 mg tablet See Rx Instructions .Route 09/18/25 10/22/25 Rx .COMPLEX #90 tabs metformin 1,000 mg tablet See Rx Instructions .Route 05/18/25 06/21/25 Rx .COMPLEX #180 tabs amlodipine 10 mg tablet 10 mg PO DAILY #90 tabs 06/05/25 06/21/25 Rx atorvastatin 80 mg tablet (Lipitor) 80 mg PO DAILY #90 tabs 06/05/25 06/21/25 Rx pen needle, diabetic 31 gauge x #100 ea 06/21/25 Rx 3/16 Laboratory Tests 06/21/25 09:36 POC Capillary Glucose 175 H mg/dl (65-105) Patient hx anesthesia problems: none Family hx anesthesia problems: none Results Review: All pre-operative results and documents have been reviewed as part of the pre-operative evaluation. [facility] Past Medical History Medical History Amputation of right great toe Hypertension COVID-19 Diabetes Overweight (BMI 25.0-29.9) Heart disease Skin cancer Basal cell carcinoma (BCC) of right lateral cheek Surgical History Surgical History History of coronary artery stent placement Family History Family History Mother Lung cancer Father Diabetes mellitus Parkinson disease Daughter Heart disease Depression Hypertension Social History Social History Smoking packs per day: 1 Smoking cigarettes per day: 20.0 Years smoked: 10 Smoking pack-years: 10.00 Smoking status: Former smoker Tobacco type: cigarettes Second hand tobacco smoke exposure: No Smoking end date: 08/31/69 Alcohol intake: current Alcohol use details: Rarely Substance use: never Substance use type: does not use Lack of Transportation: No Lack of Food: Never True Current Housing: I Have Housing Concerned About Future Housing: No Difficulty Paying Gas/Electric Bills: No Difficulty Paying for Meds: No Currently Unemployed: No Education: Associate Degree Difficulty w/ Childcare or Family Care: YES Living arrangements: with family Additional living arrangements comments: with sp Spiritual care concerns: No Anes - Eval Final PreProcedure Day of Procedure 06/21/25 09:56 Patient weight: obese Heart: regular rate and rhythm Lungs: clear to auscultation Airway: Mallampati scale class II Neurological: alert and oriented Last oral intake: >/= 8 hours ASA classification: III Emergent: no Anesthetic plan: proceed Anesthesia type and monitoring: general GIVS and standard monitoring Results Review: All pre-operative results and documents have been reviewed as part of the pre-operative evaluation. Informed Consent: The patient's anesthetic plan and its attendant risks and benefits were discussed with the patient/family/POA. Questions were solicited and answers provided to the satisfaction of the patient/family/POA.
--- NOTE | 2025-06-21 09:57 | WPDANESEPPF ---
Anes - Initial Pre Proc Eval Procedure: Operation Date: 06/21/25 10:30 Proposed Procedures p Screening Colonoscopy - Rojas Mayo MD Date/Time: 06/21/25 09:57 Surgeon: Rojas Mayo MD Pre Op Diagnosis: Screening,Personal history of colon polyps Patient Data Age: 79 Gender: M Height: 1.7 m Weight: 92 kg Last Vital Signs Temp 36.5 C 06/21/25 09:18 Pulse 75 06/21/25 09:18 Resp 18 06/21/25 09:18 BP 133/59 L 06/21/25 09:18 Pulse Ox 100 06/21/25 09:18 O2 Del Method Room Air 06/21/25 09:18 Allergies Allergy/AdvReac Type Severity Reaction Status Date / Time No Known Allergies Allergy Verified 06/21/25 09:29 Home Medications ?Medication ?Instructions ?Recorded ?Confirmed ?Type clopidogrel 75 mg tablet 75 mg PO DAILY #90 tabs 02/06/21 06/21/25 Rx flash glucose scanning reader #1 ea 03/21/22 12/20/24 Rx (FreeStyle Millie 2 [place]) flash glucose sensor (FreeStyle #1 ea 03/21/22 12/20/24 Rx Millie 2 Sensor kit) metoprolol succinate 50 mg 75 mg (1.5 x 50 mg) PO DAILY #90 05/22/22 06/21/25 Rx tablet,extended release 24 hr tabs (Toprol XL) pen needle, diabetic, safety 31 #100 ea 10/03/22 12/20/24 Rx gauge x 1/4 insulin glargine U-300 conc 300 See Rx Instructions .Route 12/26/24 06/21/25 Rx unit/mL (3 mL) subcutaneous pen .COMPLEX #3 mL (Toujeo Max U-300 SoloStar) semaglutide 1 mg/dose (4 mg/3 mL) 1 mg (0.75 mL) subcut WEEKLY #9 mL 03/20/25 06/21/25 Rx subcutaneous pen injector (Ozempic) dapagliflozin propanediol 10 mg See Rx Instructions .Route 04/10/25 06/21/25 Rx tablet (Farxiga) .COMPLEX #90 tabs lisinopril 40 mg tablet See Rx Instructions .Route 09/18/25 10/22/25 Rx .COMPLEX #90 tabs metformin 1,000 mg tablet See Rx Instructions .Route 05/18/25 06/21/25 Rx .COMPLEX #180 tabs amlodipine 10 mg tablet 10 mg PO DAILY #90 tabs 06/05/25 06/21/25 Rx atorvastatin 80 mg tablet (Lipitor) 80 mg PO DAILY #90 tabs 06/05/25 06/21/25 Rx pen needle, diabetic 31 gauge x #100 ea 06/21/25 Rx 3/16 Laboratory Tests 06/21/25 09:36 POC Capillary Glucose 175 H mg/dl (65-105) Patient hx anesthesia problems: none Family hx anesthesia problems: none Results Review: All pre-operative results and documents have been reviewed as part of the pre-operative evaluation. [facility] Past Medical History Medical History Amputation of right great toe Hypertension COVID-19 Diabetes Overweight (BMI 25.0-29.9) Heart disease Skin cancer Basal cell carcinoma (BCC) of right lateral cheek Surgical History Surgical History History of coronary artery stent placement Family History Family History Mother Lung cancer Father Diabetes mellitus Parkinson disease Daughter Heart disease Depression Hypertension Social History Social History Smoking packs per day: 1 Smoking cigarettes per day: 20.0 Years smoked: 10 Smoking pack-years: 10.00 Smoking status: Former smoker Tobacco type: cigarettes Second hand tobacco smoke exposure: No Smoking end date: 08/31/69 Alcohol intake: current Alcohol use details: Rarely Substance use: never Substance use type: does not use Lack of Transportation: No Lack of Food: Never True Current Housing: I Have Housing Concerned About Future Housing: No Difficulty Paying Gas/Electric Bills: No Difficulty Paying for Meds: No Currently Unemployed: No Education: Associate Degree Difficulty w/ Childcare or Family Care: YES Living arrangements: with family Additional living arrangements comments: with sp Spiritual care concerns: No Anes - Eval Final PreProcedure Day of Procedure 06/21/25 09:57 Patient weight: obese Heart: regular rate and rhythm Lungs: clear to auscultation Airway: Mallampati scale class II Neurological: alert and oriented Last oral intake: >/= 8 hours ASA classification: III Emergent: no Anesthetic plan: proceed Anesthesia type and monitoring: general GIVS and standard monitoring Results Review: All pre-operative results and documents have been reviewed as part of the pre-operative evaluation. Informed Consent: The patient's anesthetic plan and its attendant risks and benefits were discussed with the patient/family/POA. Questions were solicited and answers provided to the satisfaction of the patient/family/POA.
--- NOTE | 2025-06-21 10:30 | PM.IMHP ---
H&P: HPI History of Present Illness Date/Time: 06/21/25 10:30 Chief Complaint: History of colon polyps Narrative: The patient has a history of colonic polyps, the last colonoscopy was 4 years ago. Review of Systems Review of Systems: All systems reviewed & are unremarkable except as noted in HPI and below PMFSH Past Medical History Medical History Amputation of right great toe Hypertension COVID-19 Diabetes Overweight (BMI 25.0-29.9) Heart disease Skin cancer Basal cell carcinoma (BCC) of right lateral cheek Surgical History Surgical History History of coronary artery stent placement Family History Family History Mother Lung cancer Father Diabetes mellitus Parkinson disease Daughter Heart disease Depression Hypertension Social History Social History Smoking packs per day: 1 Smoking cigarettes per day: 20.0 Years smoked: 10 Smoking pack-years: 10.00 Smoking status: Former smoker Tobacco type: cigarettes Second hand tobacco smoke exposure: No Smoking end date: 08/31/69 Alcohol intake: current Alcohol use details: Rarely Substance use: never Substance use type: does not use Lack of Transportation: No Lack of Food: Never True Current Housing: I Have Housing Concerned About Future Housing: No Difficulty Paying Gas/Electric Bills: No Difficulty Paying for Meds: No Currently Unemployed: No Education: Associate Degree Difficulty w/ Childcare or Family Care: YES Living arrangements: with family Additional living arrangements comments: with sp Spiritual care concerns: No Meds Home Medications and Allergies Home Medications ?Medication ?Instructions ?Recorded ?Confirmed ?Type clopidogrel 75 mg tablet 75 mg PO DAILY #90 tabs 02/06/21 06/21/25 Rx flash glucose scanning reader #1 ea 03/21/22 12/20/24 Rx (FreeStyle Millie 2 [place]) flash glucose sensor (FreeStyle #1 ea 03/21/22 12/20/24 Rx Millie 2 Sensor kit) metoprolol succinate 50 mg 75 mg (1.5 x 50 mg) PO DAILY #90 05/22/22 06/21/25 Rx tablet,extended release 24 hr tabs (Toprol XL) pen needle, diabetic, safety 31 #100 ea 10/03/22 12/20/24 Rx gauge x 1/4 insulin glargine U-300 conc 300 See Rx Instructions .Route 12/26/24 06/21/25 Rx unit/mL (3 mL) subcutaneous pen .COMPLEX #3 mL (Toujeo Max U-300 SoloStar) semaglutide 1 mg/dose (4 mg/3 mL) 1 mg (0.75 mL) subcut WEEKLY #9 mL 03/20/25 06/21/25 Rx subcutaneous pen injector (Ozempic) dapagliflozin propanediol 10 mg See Rx Instructions .Route 04/10/25 06/21/25 Rx tablet (Farxiga) .COMPLEX #90 tabs lisinopril 40 mg tablet See Rx Instructions .Route 05/18/25 06/21/25 Rx .COMPLEX #90 tabs metformin 1,000 mg tablet See Rx Instructions .Route 05/18/25 06/21/25 Rx .COMPLEX #180 tabs amlodipine 10 mg tablet 10 mg PO DAILY #90 tabs 06/05/25 06/21/25 Rx atorvastatin 80 mg tablet (Lipitor) 80 mg PO DAILY #90 tabs 06/05/25 06/21/25 Rx pen needle, diabetic 31 gauge x #100 ea 06/21/25 Rx 3/16 Allergies Allergy/AdvReac Type Severity Reaction Status Date / Time No Known Allergies Allergy Verified 06/21/25 09:29 Vital Signs Vital Signs - 24 hr 06/21/25 09:18 Temperature 97.7 F Pulse Rate 75 Respiratory Rate 18 Blood Pressure 133/59 L Pulse Oximetry 100 Oxygen Delivery Room Air Exam Const: General: cooperative and healthy appearing Resp: Effort & Inspection: normal respiratory effort and able to speak in complete sentences Auscultation: clear to auscultation bilaterally Cardio: Rate: regular rate Rhythm: regular rhythm GI: Inspection: normal to inspection GI Palp: No No hepatosplenomegaly present Auscultation: normal bowel sounds Rectal Exam: deferred Skin: General skin exam: normal color Psych: Appearance: grossly normal Mental Status: mental status grossly normal Assessment and Plan Assessment and plan (1) History of colonic polyps: Code(s): Z86.0100 - Personal history of colon polyps, unspecified Status: Acute Assessment and Plan: The patient is deemed a good candidate for the procedure. Consent signed. Will proceed.
--- NOTE | 2025-06-21 10:53 | S_PTH ---
PATIENT: Jl Hendricks LOC: [facility] U#:[id number] AGE/SX: 79/M ROOM: RE06/21/[address]: Rojas Mayo MD : 1945 BED: DIS: 06/21/2025 SPEC #: [id number] RECD: 06/21/25 12:41 STATUS: TEQUILA REQ #: [id number] BARTOLO: 06/21/25 10:[address]: Rojas Mayo DEPT: [facility] Surgical RECD BY: René Hopkins ENTERED: 06/21/25 12:43 SP TYPE: Surgical OTHR DR: Cody Light, YOAN Tissues: A - Colon Polypectomy B - Colon Polypectomy C - Colon Polypectomy Procedures: Hematoxylin and Eosin Stain Gross and Microscopic Level 4
[2025-06-21 10:55] VITALS: BP 106/61; PULSE 58; RESP 17; O2SAT 93
[2025-06-21 11:05] VITALS: BP 115/62; PULSE 58; RESP 17; O2SAT 93
[2025-06-21 11:15] VITALS: BP 133/72; PULSE 66; RESP 18; O2SAT 99
== END 2025-06-21 11:28 | disposition home or self-care (01) ==
PROVIDERS: PCP Nurse Practitioner; Referring Provider Internal Medicine Gastroenterology; Visit Provider Internal Medicine Gastroenterology
PROC: 0DJD8ZZ Inspection of Lower Intestinal Tract, Via Natural or Artificial Opening Endoscopic (ICD-10-PCS; CPT 45378; principal; 2025-06-21 10:30)
DX: Z12.11 Encounter for screening for malignant neoplasm of colon (principal); K63.5 Polyp of colon; K62.1 Rectal polyp; K64.8 Other hemorrhoids; E11.9 Type 2 diabetes mellitus without complications
CPT/HCPCS: 45385; 82948; 88305; J2003; J2704; J7120